=== PATIENT | male | born 1965 | race Caucasian/White ===

== ENCOUNTER 2018-08-02 08:49 | Day surgery (SDC) | payer OTHER ==
[2018-08-02] MEDS ORDERED: LIDOCAINE 100 MG SYRINGE (10:26)
[2018-08-02] MEDS ORDERED: PROPOFOL 60 ML (10:26)
[2018-08-02] MEDS ORDERED: FENTAnyl 50 MCG/ML VIAL (10:27)
== END 2018-08-02 16:07 | disposition home or self-care (01) ==
LOC: GIL 08:49
DX: K92.1 Melena (principal); K64.8 Other hemorrhoids; D12.5 Benign neoplasm of sigmoid colon; D12.3 Benign neoplasm of transverse colon; D12.2 Benign neoplasm of ascending colon; K44.9 Diaphragmatic hernia without obstruction or gangrene; K21.9 Gastro-esophageal reflux disease without esophagitis; K29.00 Acute gastritis without bleeding; J44.9 Chronic obstructive pulmonary disease, unspecified; E66.9 Obesity, unspecified; Z68.32 Body mass index [BMI] 32.0-32.9, adult; F17.200 Nicotine dependence, unspecified, uncomplicated
CPT/HCPCS: 43239; 88305